=== PATIENT | female | born 1950 | race Caucasian/White ===

== ENCOUNTER 2021-09-06 09:18 | Outpatient (CLI) | payer OTHER | END 2021-09-06 10:00 | disposition home or self-care (01) | LOC: NUCLEAR 09:18 | PROVIDERS: ATTEND Specialist | DX: I87.2 Venous insufficiency (chronic) (peripheral) (principal) ==

== ENCOUNTER → 2025-03-19 | Outpatient (CLI) | payer OTHER | END | disposition home or self-care (01) | LOC: NUCLEAR 08:02 | PROVIDERS: ATTEND Surgery | DX: I70.411 Atherosclerosis of autologous vein bypass graft(s) of the extremities with intermittent claudication, right leg (principal); L97.918 Non-pressure chronic ulcer of unspecified part of right lower leg with other specified severity; I77.1 Stricture of artery ==